=== PATIENT | female | born 1990 | race Caucasian/White ===

== ENCOUNTER → 2016-07-02 | Day surgery (SDC) | payer SELFPAY ==
[2016-07-01 13:02] VITALS: BMI 21.0
--- NOTE | 2016-07-01 18:01 | HISTORY & PHYSICAL EXAMINATION ---
DATE OF ADMISSION: 07/02/2016 REASON FOR ADMISSION: Missed . HISTORY OF PRESENT ILLNESS: The patient is a 25-year-old female, 1, para 0, approximately 8 weeks' with early failure of approximately 8 weeks. The patient is 12 weeks' 6 days by LMP and 8 weeks' by ultrasound. The patient has no significant medical history. She has not had any surgeries in the past. ALLERGIES: No known allergies. MEDICATIONS: vitamins. SOCIAL HISTORY: The patient smokes half-a-pack per day. Denies alcohol or drug use. PHYSICAL EXAMINATION: HEENT: Within normal limits. LUNGS: Clear to auscultation. COR: Regular rate and rhythm. ABDOMEN: Soft, nontender. EXTREMITIES: Within normal limits. NEUROLOGIC: Intact. ASSESSMENT: Missed , approximately 8 weeks. PLAN: D\T\E in the OR tomorrow. MTDD
[~2016-07-02] VITALS: Ht 152.4 cm; Wt 49.1 kg
[~2016-07-02] MED LIST: DEXAMETHASONE SOD INJ 4 MG/ML VIAL ONE; DiphenhydrAMINE HCL 50 MG/ML VIAL IV PRN; FENTANYL CITRATE INJ 50 MCG/1 ML 2 ML VIAL IV PRN; FENTANYL CITRATE INJ 50 MCG/1 ML 2 ML VIAL ONE; HYDROCODONE/ACETAMOPHEN 5/325MG TAB PO PRN; IBUPROFEN 600 MG TAB PO PRN; KETOROLAC TROMETHAMINE 30 MG/ML VIAL IV. PRN; KETOROLAC TROMETHAMINE 30 MG/ML VIAL ONE; LACTATED RINGER'S 1000ML 1,000 ML IV PRN; LACTATED RINGER'S 1000ML 1,000 ML IV SCH; LIDOCAINE HCL 2% 2 ML VIAL (20MG/ML) ONE; METOCLOPRAMIDE HCL INJ 5 MG/ML 2 ML VIAL IV PRN; MIDAZOLAM HCL 1 MG/ML 2ML VIAL ONE; MTR600X PO; ONDANSETRON INJ 2 MG/ML 2 ML VIAL IV PRN; ONDANSETRON INJ 2 MG/ML 2 ML VIAL ONE; OXYCODONE/ACETAMINOPHEN 5-325 TAB PO PRN; OXYTOCIN INJ 10 UNITS/ML VIAL ONE; PRENTAB26 PO; PROPOFOL IV EMULSION 10 MG/ML 20 ML VIAL IV ONE; SILVER NITRATE APPLICATORS TOP ONE; SODIUM CHLORIDE 0.9% 1000ML 1,000 ML IV SCH
[2016-07-02 06:15] VITALS: BP 114/58; PULSE 76; TEMP 36.8; O2SAT 100; Ht 152.4 cm; Wt 49.1 kg
--- NOTE | 2016-07-02 07:23 | History & Physical Bridge Note ---
H&P Re-Evaluation Bridge Note: I have examined the patient, reviewed the History & Physical and in the interval since the performance of the History & Physical I have noted the following changes of clinical significance: No changes noted
--- NOTE | 2016-07-02 08:10 | Discharge Instructions ---
Discharge Instructions Admission Reason for Admission: Missed Discharge Discharge Diagnosis / Problem: Missed Discharge Goals Goal(s): Routine recovery after surgery, Continuing TRIAGE TECHNICIAN care Activity Recommendations Activity Limitations: as noted below Lifting Limitations: no more than 10 pounds May Resume Sexual Activity: when tolerated Driving or Machine Use: resume 1 day after discharge . Current Hospital Diet Patient's current hospital diet: Discharge Diet Recommended Diet: Regular Diet Fluid Restriction: None Procedures Procedures Performed: D&E Pending Studies Studies pending at discharge: no Medical Emergencies . Who to Call and When: Medical Emergencies: If at any time you feel your situation is an emergency, please call 911 immediately. . Non-Emergent Contact Non-Emergency issues call your: Primary Care Provider . . "Provider Documentation" section prepared by Prasad Robbins. VTE Core Measure Inpt VTE Proph given/why not?: Treatment not indicated
--- NOTE | 2016-07-02 08:13 | [facility] Post Operative Brief Note ---
Immediate Operative Summary Operative Date Jul 02, 2016. Pre-Operative Diagnosis Missed Post-Operative Diagnosis same Procedure(s) Performed D&E Surgeon Itzel Supplier Development Manager Surgeon(s) none Estimated Blood Loss 100 ml. Findings products of conception Fluids (cc crystalloids) 1000 ml Specimens POC's Drains none urine out 200 ml. Anesthesia LMA Complication(s) None Disposition Recovery Room / PACU
--- NOTE | 2016-07-02 08:27 | Anesthesiology Progress Note ---
Anesthesia Post Op Note Date & Time Jul 02, 2016 at 08:26 Vital Signs Pain Intensity: 0 Vital Signs Past 12 Hours Date Time Temp Pulse Resp B/P Pulse Ox O2 Delivery O2 Flow Rate FiO2 07/02/16 08:11 36.4 80 13 102/52 100 Mask 10 07/02/16 06:15 36.8 76 18 114/58 100 Room Air Notes Mental Status: alert / awake / arousable, participated in evaluation Pt Amnestic to Procedure: Yes Nausea / Vomiting: adequately controlled Pain: adequately controlled Airway Patency, RR, SpO2: stable & adequate BP & HR: stable & adequate Hydration State: stable & adequate Anesthetic Complications: no major complications apparent
[2016-07-02 08:55] VITALS: BP 99/67; PULSE 68; TEMP 36.8; O2SAT 99
[2016-07-02 09:27] VITALS: BP 107/63; PULSE 72; TEMP 36.5; O2SAT 99
--- NOTE | 2016-07-02 09:48 | OPERATIVE REPORT ---
DATE OF OPERATION: 07/02/2016 PREOPERATIVE DIAGNOSIS: Missed . POSTOPERATIVE DIAGNOSIS: Same. PROCEDURE: D\T\E. SURGEON: Dr. Robbins. ANESTHESIA: LMA anesthesia. DIRECTOR OF VITAL STATISTICS: None. COMPLICATIONS: None. ESTIMATED BLOOD LOSS: 100 mL. URINE OUTPUT: 200 mL. TOTAL FLUIDS: 1000 mL. CLINICAL HISTORY: The patient is a 25-year-old white female para 0-0-0-0 who presents at approximately 8 weeks gestation with a missed AB diagnosed by ultrasound. The patient is approximately 12 weeks by LMP. She was identified prior to the start of the procedure and timeout was called and the patient received no antibiotics. OPERATION AND FINDINGS: SPECIFICS OF PROCEDURE: Under satisfactory LMA anesthesia, the patient was prepped and draped in usual sterile fashion. A catheter was then used to empty the bladder. Urine output 200 mL. Exam under anesthesia revealed the uterus to be anteverted. No mass noted. A weighted speculum was then placed in the posterior vault of the cervix. A single tooth tenaculum was placed on the anterior lip of the cervix. The uterus sounded to approximately 10 cm. Dilators were then used to dilate the cervix and a #8 curved curette was then introduced. Curetting and suctioning out products of conception. After this, a sharp endometrial curette was used. At the end of the procedure Pitocin was started in the IV. No active bleeding was noted. All remaining instruments were then removed. There was a small amount of bleeding from the left cervix from the tenaculum and silver nitrate stick was then used to cauterize this. EBL 100 mL. The final sponge, needle and instrument count were found to be correct. The patient was placed supine on a stretcher and taken to recovery room in stable condition. The patient's blood type was Rh positive and she did not receive RhoGAM. I attest to the content of the Intraoperative Record and any orders documented therein. Any exceptio ns are noted below.
[2016-07-02 09:58] VITALS: BP 99/68; PULSE 72; TEMP 36.6; O2SAT 99
== END | disposition home or self-care (01) ==
LOC: C.ACU 05:47
PROVIDERS: ATTEND Obstetrics & Gynecology
DX: O02.1 Missed abortion (principal); F17.210 Nicotine dependence, cigarettes, uncomplicated

== ENCOUNTER → 2018-02-04 | Outpatient (CLI) | payer OTHER ==
[~2018-02-04] MED LIST changes: -DEXAMETHASONE SOD INJ 4 MG/ML VIAL ONE; -DiphenhydrAMINE HCL 50 MG/ML VIAL IV PRN; -FENTANYL CITRATE INJ 50 MCG/1 ML 2 ML VIAL IV PRN; -FENTANYL CITRATE INJ 50 MCG/1 ML 2 ML VIAL ONE; -HYDROCODONE/ACETAMOPHEN 5/325MG TAB PO PRN; -IBUPROFEN 600 MG TAB PO PRN; -KETOROLAC TROMETHAMINE 30 MG/ML VIAL IV. PRN; -KETOROLAC TROMETHAMINE 30 MG/ML VIAL ONE; -LACTATED RINGER'S 1000ML 1,000 ML IV PRN; -LACTATED RINGER'S 1000ML 1,000 ML IV SCH; -LIDOCAINE HCL 2% 2 ML VIAL (20MG/ML) ONE; -METOCLOPRAMIDE HCL INJ 5 MG/ML 2 ML VIAL IV PRN; -MIDAZOLAM HCL 1 MG/ML 2ML VIAL ONE; -ONDANSETRON INJ 2 MG/ML 2 ML VIAL IV PRN; -ONDANSETRON INJ 2 MG/ML 2 ML VIAL ONE; -OXYCODONE/ACETAMINOPHEN 5-325 TAB PO PRN; -OXYTOCIN INJ 10 UNITS/ML VIAL ONE; -PROPOFOL IV EMULSION 10 MG/ML 20 ML VIAL IV ONE; -SILVER NITRATE APPLICATORS TOP ONE; -SODIUM CHLORIDE 0.9% 1000ML 1,000 ML IV SCH
[2018-02-04 15:45] LABS: HEMATOCRIT 33.4 % (37-47); HEMOGLOBIN 11.3 g/dL (12.0-16.0)
== END | disposition home or self-care (01) ==
LOC: C.LAB1850 13:46
PROVIDERS: ATTEND Obstetrics & Gynecology
DX: Z34.03 Encounter for supervision of normal first pregnancy, third trimester (principal)

== ENCOUNTER 2020-11-02 07:30 | Inpatient (IN) ==
--- NOTE | 2020-10-11 13:05 | Anesthesiology Consultation ---
Date of Service October 11, 2020 Assessment & Plan (1) Encounter for pre-operative examination: Chart Review Chart Review: dividend deposit entry clerk initiated Per nursing assessment October 11, 2020, patient denies any recent travel. No known reent Covid positive contacts. Pt tested Covid positive Jul 18, 2020. Had loss of taste and smell- still has not fully returned. Pt is scheduled for preop Covid testing prior to procedure= will await results. History Surgery Operation Date: 11/02/20 07:30 Proposed Procedures p Section in LD - Jazmyn Acosta MD Height/Weight Height: 5 ft Weight: 58.513 kg Allergies Allergy/AdvReac Type Severity Reaction Status Date / Time No Known Allergies Allergy Verified 10/11/20 11:57 Medications Home Medications Medication Instructions Recorded Confirmed Last Taken prenat.vits,romelia,xau-ylhm-pizhr 1 tab PO QAM 03/28/20 10/11/20 Unknown Past Medical History Medical History (Updated 10/11/20 @ 13:40 by Apoorva Mejia PA-C) History of COVID-19 07/18/2020 (per OB note) Urgent Care [place]; loss of taste/smell, denies additional symptoms; still without taste/smell Tobacco abuse Past Family History Family History Grandmother Cancer Grandmother (Maternal) Diabetes Hypertension Other No family history of adverse response to anesthesia Past Surgical History Surgical History H/O dilation and curettage [facility] H/O oral surgery History of History of wisdom tooth extraction Social History Smoking Status: Current every day smoker tobacco type: cigarettes Smoking cigarettes per day: > 1 ppd x 13 years Do You Dip or Chew Tobacco: No Hx Alcohol Use: No Hx Substance Use: No substance use type: does not use
[~2020-11-02 07:30] MED LIST changes: +LACTATED RINGER'S 1,000 ML IV SCH; -MTR600X PO; -PRENTAB26 PO; +ceFAZolin 2000MG 2,000 MG/15 ML SYR IV SCH
[2020-11-02] MEDS ORDERED: LACTATED RINGER'S 1,000 ML IV SCH (08:45)
[2020-11-02 08:57] LABS: Basophils # (auto) 0.02 K/uL (0-0.2); Basophils % (auto) 0.2 %; Eosinophils # (auto) 0.46 K/uL (0-0.5); Eosinophils % (auto) 4.5 %; Hematocrit (blood only) 35.8 % (37-47); Hemoglobin 12.3 g/dL (12.0-16.0); Immature Granulocytes # (auto) 0.03 K/uL (0.00-0.02); Immature Granulocytes % (auto) 0.3 %; Lymphocytes # (auto) 2.92 K/uL (1.2-3.4); Lymphocytes % (auto) 28.9 %; Mean Corpuscular Hemoglobin 31.1 pg (25-34); Mean Corpuscular Hgb Conc 34.4 g/dL (32-36); Mean Corpuscular Volume 90.6 fL (80-100); Mean Platelet Volume 10.8 fL (7.4-10.4); Monocytes # (auto) 0.98 K/uL (0.11-0.59); Monocytes % (auto) 9.7 %; Neutrophils % (auto) 56.4 %; Platelet Count 213 K/uL (130-400); RDW Coefficient of Variation 12.6 % (11.5-14.5); RDW Standard Deviation 42.2 fL (36.4-46.3); Red Blood Count 3.95 M/uL (4.2-5.4); White Blood Count 10.11 K/uL (4.8-10.8)
--- NOTE | 2020-11-02 08:58 | History & Physical Bridge Note ---
Date of Service November 02, 2020 History & Physical Bridge Note I have examined the patient, reviewed the History & Physical and in the interval since the performance of the History & Physical I have noted the following changes of clinical significance: no changes noted
[2020-11-02] MEDS ORDERED: NALOXONE HCL 0.4 MG/1 ML VIAL/CARP IV PRN (09:13)
[2020-11-02] MEDS ORDERED: NALOXONE HCL 1 MG in SODIUM CHLORIDE 0.9% 1000ML 1,000 ML IV PRN (09:13)
[2020-11-02] MEDS ORDERED: NALOXONE HCL 0.08 MG in SYRINGE 1.8 ML IV PRN (09:13)
[2020-11-02] MEDS ORDERED: diphenhydrAMINE 50 MG/ML VIAL IV PRN (09:13)
[2020-11-02] MEDS ORDERED: MoRPHine SULFATE 2 MG/ML CARP IV PRN (09:13)
[2020-11-02] MEDS ORDERED: LACTATED RINGER'S 500 ML IV PRN (09:13)
[2020-11-02] MEDS ORDERED: HYDROmorphone INJ 0.5 MG/0.5 ML SYR IV PRN (09:13)
[2020-11-02] MEDS ORDERED: ONDANSETRON INJ 2 MG/ML 2 ML VIAL IV PRN (09:13)
[2020-11-02] MEDS ORDERED: MoRPHine SULFATE PF 1 MG/ML 10 ML AMP/VIAL INT SPINAL ONE (09:13)
[2020-11-02] MEDS ORDERED: ePHEDrine sulfate 50 MG/ML AMP IV PRN (09:13)
[2020-11-02] MEDS ORDERED: MEPERIDINE HCL 25 MG/ML CARP/VIAL IV PRN (09:13)
[2020-11-02] MEDS ORDERED: NO NARCOTICS OR SEDATIVES SCH (09:15)
[2020-11-02] MEDS ORDERED: SODIUM CHLORIDE 0.9% 1000ML 1,000 ML IV SCH (09:15)
[2020-11-02] MEDS ORDERED: MoRPHine SULFATE PF 1 MG/ML 10 ML AMP/VIAL ONE (10:03)
[2020-11-02] MEDS ORDERED: fentaNYL citrate 100 MCG/2 ML VIAL ONE (10:03)
[2020-11-02] MEDS ORDERED: PHENYLEPHRINE 100MCG/ML 5ML SYR ONE (10:23)
[2020-11-02] MEDS ORDERED: OXYTOCIN 10 UNITS/ML VIAL ONE (10:23)
--- NOTE | 2020-11-02 10:52 | Operative Report ---
[facility] Post Operative Report Pre & Post Diagnosis Prior section, desires repeat. SIUP @ term. I identified the patient and participated in the time-out.: Yes Procedure Repeat low transverse section Surgeon Jazmyn Acosta MD Director Of Tax Services Letitia MEJIA Estimated Blood Loss 500 Findings Consistent with Post-Op Diagnosis Specimens Placenta, cord blood Anesthesia Type Spinal Complications none Disposition Accompanied Patient To Recovery: Yes Disposition: L&D Description of Procedure The patient was brought to the operating room and placed on the table in the supine position with a leftward tilt, then prepped and draped in standard sterile fashion. A hard time out was taken prior to proceeding. A pfannensteil incision was created sharply and carried down to the fascia using bovie electrocautery. The fascia was nicked and then extended using stewart scissors. The edges of the fascia were grasped with Darion clamps and elevated, then sharply and bluntly dissected off the underlying rectus. The midline of the rectus was identified and bluntly . The peritoneum was bluntly en tered, and this entry was extended using pressure from the surgeon's hands. The bladder retractor was placed and the lower uterine segment was examined and found to be well developed. A bladder flap was created and the retractor was replaced behind this flap to protect the bladder. A transverse lower uterine incision was then created, with final entry to the uterine cavity made in a blunt manner with the surgeon's finger. Clear amniotic fluid was encountered. The head was elevated to the incision and delivered using mild fundal pressure. The cord was doubly clamped and cut, then the vigorous was taken to the warmer for entry manager care. The placenta was manually extracted, then the uterus was gently exteriorized from the maternal abdomen. The cavity was cleared of clot and debris using a dry lap sponge. The angles of the incision were identified with allis clamps, and the hysterotomy was then repaired in running locked fashion using 0-vicryl suture, followed by a second imbricating layer. The tubes and ovaries were examined and found to be normal bilaterally. The posterior gutter was irrigated and cleared of clot and debris. The uterus was then gently re-internalized to the abdomen. Lateral gutters were cleared of clot and debris using a damp lap sponge, and a final exam of the hysterotomy revealed good hemostasis. The rectus muscles were allowed to reapproximate naturally. The angle of the fascia was grasped with a Darion clamp and the fascia was then repaired in running non-locked fashion with 1- vicryl suture. At the completion of repair, the fascia was examined and found to be free of any defect. The skin was then closed using 4-0 monocryl in a running subcuticular fashion and a dermabond dressing was applied. The bledsoe was noted to be draining clear yellow urine as the patient was transferred back to her recovery room. I attest to the content of the Intraoperative Record and any orders documented therein. Any exceptions are noted below.
[2020-11-02] MEDS ORDERED: SENNA 8.6 MG TAB PO PRN (13:53)
[2020-11-02] MEDS ORDERED: SUPERCREAM 0.870% 15 GM JAR EXT PRN (13:53)
[2020-11-02] MEDS ORDERED: BENZOCAINE 20% AER SPR 82.5 GM CAN EXT PRN (13:53)
[2020-11-02] MEDS ORDERED: HYDROCORTISONE ACETATE 25 MG SUPP PR PRN (13:53)
[2020-11-02] MEDS ORDERED: MAGNESIUM HYDROXIDE SUSP 30 ML UDC PO PRN (13:53)
[2020-11-02] MEDS ORDERED: DIPHTHERIA/TETANUS/PERTUSSIS 0.5 ML SYR/VIAL IM ONE (13:53)
[2020-11-02] MEDS: OXYTOCIN 30 UNITS in LACTATED RINGER'S 1,000 ML IV SCH ×2 (14:36→21:59)
[2020-11-02] MEDS: KETOROLAC 30 MG/ML VIAL IV PRN ×2 (14:53→21:13)
[2020-11-02] MEDS: NICOTINE 21 MG/24 HR TDSY TD SCH (17:17)
[2020-11-02] MEDS: SIMETHICONE 80 MG CHEW PO SCH ×2 (17:38→21:02)
--- NOTE | 2020-11-02 19:58 | Anesthesiology Progress Note ---
Date of Service November 02, 2020 Anesthesia Post Procedure Vital Signs Vital Signs: Temp Pulse Pulse Resp BP BP Pulse Ox 11/02/20 18:30 18 97 11/02/20 17:30 18 99 11/02/20 16:30 18 99 11/02/20 15:30 18 100 11/02/20 14:30 36.4 C L 63 18 112/77 100 11/02/20 14:23 57 L 106/64 100 11/02/20 14:18 58 L 100 11/02/20 14:13 58 L 104/70 100 11/02/20 14:08 59 L 100 11/02/20 14:03 64 106/69 100 11/02/20 13:58 52 L 100 11/02/20 13:53 53 L 52 L 16 106/74 106/74 100 11/02/20 13:48 71 100 11/02/20 13:43 66 103/68 100 11/02/20 13:38 55 L 100 11/02/20 13:33 54 L 104/69 100 11/02/20 13:28 52 L 100 11/02/20 13:23 63 106/61 100 11/02/20 13:18 53 L 98 11/02/20 13:13 67 110/59 L 100 11/02/20 13:08 89 99 11/02/20 13:03 66 101/59 L 97 11/02/20 12:58 61 98 11/02/20 12:53 36.4 C L 61 48 L 16 99/60 L 99/60 L 98 11/02/20 12:48 61 97 11/02/20 12:43 48 L 99/56 L 97 11/02/20 12:38 59 L 97 11/02/20 12:33 64 104/57 L 97 11/02/20 12:28 57 L 98 11/02/20 12:23 36.4 C L 61 59 L 16 97/56 L 97/56 L 98 11/02/20 12:18 47 L 97 11/02/20 12:13 60 99/60 L 97 11/02/20 12:08 57 L 97 11/02/20 12:03 62 100/57 L 97 11/02/20 11:58 57 L 98 11/02/20 11:53 66 60 20 102/55 L 102/55 L 98 11/02/20 11:48 70 98 11/02/20 11:43 66 68 20 104/62 104/62 97 11/02/20 11:38 72 97 11/02/20 11:33 72 75 16 108/63 108/63 97 11/02/20 11:28 77 98 11/02/20 11:23 72 68 20 103/54 L 103/54 L 96 11/02/20 11:18 73 98 11/02/20 11:14 77 77 20 103/64 103/64 98 11/02/20 11:13 86 96 11/02/20 11:08 79 90 11/02/20 11:07 81 94 11/02/20 11:03 77 86 20 94/56 L 94/56 L 97 11/02/20 11:00 85 94 11/02/20 10:58 97 H 98 11/02/20 10:53 85 96 11/02/20 10:52 36.4 C L 88 88 20 95/53 L 95/53 L 96 11/02/20 09:37 36.6 C 20 11/02/20 09:30 72 141/75 H 11/02/20 09:00 36.9 C 74 20 117/72 Pain Intensity Abdomen: Pain Intensity: 2 Transfer of Care Handoff Completed per policy Notes Mental Status: alert / awake / arousable Nausea / Vomiting: adequately controlled Pain: adequately controlled Airway Patency, RR, SpO2: stable & adequate BP & HR: stable & adequate Hydration State: stable & adequate Neuraxial Anesthesia: was administered and sensory block is resolving Anesthetic Complications: no major complications apparent and Pt Satisfied with anesthetic care
[2020-11-02] MEDS: DOCUSATE SODIUM 100 MG CAP PO SCH (21:02)
[2020-11-03] MEDS: KETOROLAC 30 MG/ML VIAL IV PRN (04:49)
--- NOTE | 2020-11-03 05:23 | Obstetrical Progress Note ---
Date of Service <Freddy Barrera MD - Last Filed: 11/03/20 06:39> November 03, 2020 Assessment & Plan <Freddy Barrera MD - Last Filed: 11/03/20 06:39> (1) state: 30 y/o 39w3d s/p rLTCS on 11/01/20, POD1. O pos. RI. GBS pos. No complications during c/s. - continue routine care - cbc reviewed, appropriate - ambulate, advance diet, remove bledsoe, pain control Subjective <Freddy Barrera MD - Last Filed: 11/03/20 06:39> Ambulation: limited ambulation Voiding: bledsoe catheter in place Passing Gas:: Yes Diet Tolerance:: regular diet Lochia:: Small Feeding Type:: breast feeding Current Pain Level(1-10): 0 Patient is doing well. Pain is minimal. No complaints. Review of Systems Denies fever, chills, sweats Denies shortness of breath, chest pain, palpitations. Denies breast pain. Denies dysuria. Denies headache or changes in vision. Denies nausea/vomiting. Denies weakness. hand tingling bilat Denies calf pain. Denies mood complaints. Physical Exam <Freddy Barrera MD - Last Filed: 11/03/20 06:39> General: Alert, oriented. No acute distress. Cardiac: Regular rate and rhythm, no murmurs/rubs/gallops. Respiratory: End inspiratory wheeze at left lung field, otherwise clear. No respiratory distress. Abdomen: , soft. LTCS incision clean, dry, intact, nonerythematous. Uterus: Uterine fundus firm, palpable 1cm below umbilicus. Lower Extremities: No lower extremity edema or swelling. No deep calf pain. Rahel's negative bilaterally. Results & Data ([facility]) <Freddy Barrera MD - Last Filed: 11/03/20 06:39> Vital Signs (Past 12 Hours) Vital Signs Temp Pulse Resp BP BP Pulse Ox 11/03/20 04:40 16 99 11/03/20 04:08 36.8 C 77 16 125/85 99 11/03/20 03:22 16 98 11/03/20 01:47 17 96 11/02/20 23:50 16 96 11/02/20 23:43 37 C 67 18 110/74 97 11/02/20 22:00 16 97 11/02/20 21:00 16 99 11/02/20 20:55 36.8 C 78 16 119/76 99 11/02/20 20:00 16 98 11/02/20 19:00 16 98 11/02/20 18:30 18 97 11/02/20 17:30 18 99 Medications Administered <Jazmyn Acosta MD - Last Filed: 11/03/20 07:45> Co-Signing Physician Notes Resident Physician Supervision Note: I interviewed and examined the patient. Discussed with Dr. Barrera and agree with findings and plan as documented in the note. Any exceptions or clarifications are listed here: [ ] Documented By: Jazmyn Acosta MD, FACOG
[2020-11-03 06:33] LABS: Hematocrit (blood only) 32.1 % (37-47); Hemoglobin 10.9 g/dL (12.0-16.0); Mean Corpuscular Hemoglobin 31.7 pg (25-34); Mean Corpuscular Volume 93.3 fL (80-100); Mean Platelet Volume 10.9 fL (7.4-10.4); Platelet Count 179 K/uL (130-400); RDW Coefficient of Variation 12.7 % (11.5-14.5); RDW Standard Deviation 42.8 fL (36.4-46.3); Red Blood Count 3.44 M/uL (4.2-5.4)
[2020-11-03 07:04] LABS: Basophils # (auto) 0.03 K/uL (0-0.2); Basophils % (auto) 0.3 %; Eosinophils # (auto) 0.31 K/uL (0-0.5); Eosinophils % (auto) 2.8 %; Immature Granulocytes # (auto) 0.01 K/uL (0.00-0.02); Immature Granulocytes % (auto) 0.1 %; Lymphocytes # (auto) 2.63 K/uL (1.2-3.4); Lymphocytes % (auto) 24.1 %; Monocytes # (auto) 1.04 K/uL (0.11-0.59); Monocytes % (auto) 9.5 %; Neutrophils # (auto) 6.88 K/uL (1.4-6.5); Neutrophils % (auto) 63.2 %
[2020-11-03] MEDS: SIMETHICONE 80 MG CHEW PO SCH ×5 (09:10→21:07)
[2020-11-03] MEDS: FERROUS SULFATE 325 MG TAB PO SCH (09:11)
[2020-11-03] MEDS: DOCUSATE SODIUM 100 MG CAP PO SCH ×2 (09:11→21:07)
[2020-11-03] MEDS: PRENATAL VITAMIN 1 TAB PO SCH (09:11)
[2020-11-03] MEDS ORDERED: PROMETHAZINE HCL 25 MG in SODIUM CHLORIDE 0.9% 50 ML IV PRN (09:14)
[2020-11-03] MEDS ORDERED: MEPERIDINE HCL 50 MG/ML CARP IV PRN (09:14)
[2020-11-03] MEDS ORDERED: KETOROLAC 30 MG/ML VIAL IV PRN (09:14)
[2020-11-03] MEDS ORDERED: diphenhydrAMINE Capsule 25 MG CAP PO PRN (09:14)
[2020-11-03] MEDS ORDERED: DC INTRASPINAL MORPHINE ONE (09:14)
[2020-11-03] MEDS ORDERED: ONDANSETRON INJ 2 MG/ML 2 ML VIAL IV PRN (09:14)
[2020-11-03] MEDS ORDERED: diphenhydrAMINE 50 MG/ML VIAL IV PRN (09:14)
[2020-11-03] MEDS: NICOTINE 21 MG/24 HR TDSY TD SCH (09:15)
[2020-11-03] MEDS: oxyCODONE/ACETAMINOPHEN 5mg/325mg TAB PO PRN ×3 (09:17→22:00)
[2020-11-03] MEDS: IBUPROFEN 600 MG TAB PO PRN ×3 (09:17→22:00)
--- NOTE | 2020-11-03 09:33 | Anesthesiology Progress Note ---
Date of Service November 03, 2020 Anesthesia Post Procedure Vital Signs Vital Signs: Temp Pulse Pulse Resp BP BP Pulse Ox 11/03/20 15:29 37.1 C 67 18 101/65 96 11/03/20 11:50 36.4 C L 74 20 114/73 11/03/20 08:00 20 98 11/03/20 07:45 37 C 66 16 103/67 99 11/03/20 07:00 16 99 11/03/20 06:00 16 97 11/03/20 04:40 16 99 11/03/20 04:08 36.8 C 77 16 125/85 99 11/03/20 03:22 16 98 11/03/20 01:47 17 96 11/02/20 23:50 16 96 11/02/20 23:43 37 C 67 18 110/74 97 11/02/20 22:00 16 97 11/02/20 21:00 16 99 11/02/20 20:55 36.8 C 78 16 119/76 99 11/02/20 20:00 16 98 11/02/20 19:00 16 98 11/02/20 18:30 18 97 Pain Intensity Abdomen: Pain Intensity: 2 Transfer of Care Handoff Completed per policy Notes Mental Status: alert / awake / arousable and participated in evaluation Nausea / Vomiting: adequately controlled Pain: adequately controlled Airway Patency, RR, SpO2: stable & adequate BP & HR: stable & adequate Hydration State: stable & adequate Neuraxial Anesthesia: sensory block resolved Anesthetic Complications: no major complications apparent and Pt Satisfied with anesthetic care
[2020-11-03] MEDS: LACTATED RINGER'S 1,000 ML IV SCH ×2 (17:05→17:06)
[2020-11-04] MEDS: oxyCODONE/ACETAMINOPHEN 5mg/325mg TAB PO PRN (04:12)
[2020-11-04] MEDS: IBUPROFEN 600 MG TAB PO PRN (04:13)
[2020-11-04 06:38] LABS: Hematocrit (blood only) 32.3 % (37-47)
[2020-11-04] MEDS: DOCUSATE SODIUM 100 MG CAP PO SCH (08:24)
[2020-11-04] MEDS: FERROUS SULFATE 325 MG TAB PO SCH (08:24)
[2020-11-04] MEDS: SIMETHICONE 80 MG CHEW PO SCH (08:24)
[2020-11-04] MEDS: PRENATAL VITAMIN 1 TAB PO SCH (08:24)
--- NOTE | 2020-11-04 09:11 | Obstetrical Progress Note ---
Date of Service November 04, 2020 Assessment & Plan (1) state: 30yo s/p day 2 . Doing well - Stable for discharge Subjective Ambulation: ambulating normally Voiding: no voiding problems Passing Gas:: Yes Diet Tolerance:: regular diet Lochia:: Moderate Physical Exam Constitutional WD/WN, vitals as above Respiratory normal respiratory effort; no respiratory distress and no labored breathing Gastrointestinal (Abdomen) Inspection/Auscultation: abdomen normal to inspection; abdomen not distended Percussion/Palpation: abdomen soft; abdomen nontender, no guarding and abdomen not rigid Incision clean dry and intact Genitourinary OB Exam Abdomen: + fundal height Fundus: + firm and + relation to umbilicus (Below); not tender and not boggy Results & Data ([facility]) Vital Signs (Past 12 Hours) Vital Signs Temp Pulse Resp BP Pulse Ox 11/04/20 07:20 36.7 C 67 18 109/71 97 11/03/20 23:05 36.8 C 64 18 119/74
--- NOTE | 2020-11-05 10:37 | Discharge Summary ---
Date of Service November 05, 2020 Discharge Data Consultations 11/02/20 08:38 Consult Anesthesiology Stat Procedures Performed Operation Date: 11/02/20 08:50 Actual Procedures p Section in LD with the of a live female child at 1024; in Main OR 3 - Jazmyn Acosta MD Hospital Course (1) state: 30yo s/p day 2 . Doing well - Stable for discharge Patient underwent uncomplicated repeat section and was discharged on POD#2 as per above, with plan for typical 6 week follow up and with prn pain medication. Coding Level of Care Code None Diagnoses state Z39.2
== END 2020-11-04 11:35 | disposition home or self-care (01) | DRG 788 ==
LOC: EDSTATUS 07:30 → 4S1 08:34 → 4S2 15:26

== ENCOUNTER 2025-02-19 23:57 | Inpatient (IN) ==
--- NOTE | 2025-02-20 00:39 | History & Physical Report ---
Date of Service February 20, 2025 Assessment & Plan (1) SROM (spontaneous rupture of membranes): (2) Previous delivery affecting : Plan 34 yo at 39 wga presents w/ srom, planned repeat CS VSS Fetus cat 1 CS - Discussed indications, risks, benefits, alternatives with risks including infection, bleeding, injury to adjacent structures (bowel, bladder, ureters, blood vessels, nerves, baby), possible need for blood transfusion and/or life saving hysterectomy, VTE. Desires permanent sterilization, reviewed risk of regret. Consent reviewed in detail w/ pt and signed after all questions answered to her satisfaction. Plan for ancef and azithro Admission and Anticipated Discharge Date Admission Date: February 20, 2025 History of Present Illness Chief Complaint: ROM Primary Care Provider: Michael Benitez, 34 yo at 39 wga presents with SROM. +FM; denies ctx, VB PNI: CSx2, desires repeat w/ tubal Past ground hand hx: Past Pregnancies Del. Date GA wks Lbr Lgth wt Sex Type del Anes Place Del Prov ? Comment Unknown 8 Aborted-Spontaneous 201504/23/18 39 6lb 11oz M Epidural [facility] Dr. Acosta No failure to progress 11/02/20 39 6lbs F Spi nal [facility] Dr. Acosta No denies hx stis denies hx abnl pap Allergies Allergy/AdvReac Type Severity Reaction Status Date / Time No Known Allergies Allergy Verified 02/20/25 00:22 Home Medications Medication Instructions Recorded Confirmed Type [id number] 1 tab PO DAILY 07/28/24 02/20/25 History [ Plus] acetaminophen 325 mg tablet 325 mg PO QID PRN Pain 02/14/25 02/15/25 History Patient History Medical History (Updated 02/20/25 @ 00:38 by Jessica Nix MD) MDD (major depressive disorder), recurrent episode hx Anxiety no meds Tobacco abuse History of COVID-19 07/18/2020 (per OB note) Urgent Care [place]; loss of taste/smell, denies additional symptoms; still without taste/smell Surgical History History of wisdom tooth extraction History of x2 H/O oral surgery H/O dilation and curettage SAB Family History Grandmother Cancer Grandmother (Maternal) Diabetes Hypertension Other No family history of adverse response to anesthesia Denies family history of Ovarian cancer Myocardial infarction Breast cancer Lung cancer Colorectal cancer Stroke Social History Smoking Status: Current every day smoker Tobacco Type: Cigarettes Cigarettes Per Day: 10 per day -advsed; Second Hand Exposure: Yes (hx); Do You Dip or Chew Tobacco: No; Hx Alcohol Use: No Hx Substance Use: No Preferred Language: Nigerien Communication Ability: Effective Visual Impairment: Limited Hearing Ability: Normal Automation And Control Engineer Required: No Beliefs That Will Affect Care: None marital status: Single marital status details: Segundo (32) [phone] Current Living Situation: Family and Significant Other current occupational status: employed 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 [employer] How many Children do You have: 2 Feels Safe at Home: Yes Childhood Exposure to Second-Hand Smoke: Yes Diet: regular caffeine: Yes Dental Care, Regularly: No Physical Activity Frequency: 3-4 Times per Week Seatbelt Use: always Sunscreen Use: No Assistive Devices: Contacts and Glasses Physical Exam Genitourinary: OB Exam Monitor Tracing: + external FHT monitor used, + external uterine monitor used (q9) and + category I (130/mod/+accel/-decel) grossly ruptured Results & Data Vital Signs (Past 12 Hours) Vital Signs Pulse BP 02/20/25 00:15 86 126/75 Laboratory Results OB Labs: Blood Type O Positive 08/01/24 Antibody Screen NEGATIVE 08/01/24 Hgb 11.8 g/dl (12.0-16.0) L 12/07/24 Hct 34.7 % (37.0-47.0) L 12/07/24 MCV 92.2 fL (80.0-100.0) 08/01/24 Plt Count 264 K/uL (130-400) 08/01/24 Rubella IgG Antibody Non Immune (Immune) L 08/01/24 RPR Nonreactive (Nonreactive) 04/02/20 Treponema pallidum Ab Negative (Negative) 12/07/24 Hep Bs Antigen Negative (Negative) 08/01/24 Hepatitis C Antibody Negative (Negative) 08/01/24 HIV 1&2 Ab/P24 Ag 4thGn Negative (Negative) 08/01/24 Glucose 1 Hr 50 gm 137 mg/dl (70-130) H 12/07/24 Maternal Serum AFP 57.3 ng/mL 09/14/24 OB Optional Labs: Chlamydia trachomatis RNA Not Detected (NotDetected) 08/01/24 Neisseria gonorrhoeae RNA Not Detected (NotDetected) 08/01/24 Thyroid Stimulating Hormone (TSH) 1.277 uIu/ml (0.300-4.500) 06/30/24 Alpha Fetoprotein Triple Screen SEE NOTE 09/14/24 Alpha Fetoprotein 69.3 NG/ML 11/13/17 Labs Reviewed: CF/SMA negative (09/18/17) QS neg akh gbs pos akh 2 hr gtt x 2 nl akh Diagnostic Findings ant plac Coding Level of Care Code None Diagnoses SROM (spontaneous rupture of membranes) Previous delivery affecting O34.219
[2025-02-20] MEDS: LACTATED RINGER'S 1,000 ML IV SCH ×2 (00:48→01:46)
[2025-02-20] MEDS: ACETAMINOPHEN 500 MG TAB PO SCH (00:53)
[2025-02-20 00:59] LABS: Hematocrit (blood only) 35.9 % (37.0-47.0); Hemoglobin 12.7 g/dl (12.0-16.0); Mean Corpuscular Hemoglobin 32.2 pg (25.0-34.0); Mean Corpuscular Volume 91.1 fL (80.0-100.0); Platelet Count 183 K/uL (130-400); RDW Standard Deviation 40.6 fL (36.4-46.3); Red Blood Count 3.94 M/uL (4.20-5.40); White Blood Count 15.40 K/ul (4.8-10.8)
[2025-02-20] MEDS: CITRIC ACID/SODIUM CITRATE 15 ML UDC PO SCH (01:44)
[2025-02-20] MEDS: AZITHROMYCIN 500 MG/255 ML BAG IV SCH (02:19)
--- NOTE | 2025-02-20 03:49 | Operative Report ---
Post Operative Report Pre & Post Diagnosis Operation Date: 02/20/25 01:00 Intrauterine at 39 weeks, SROM, CSx2, desires sterilization I identified the patient and participated in the time-out.: Yes Procedure Operation Date: 02/20/25 01:00 Repeat Low Transverse Section with Bilateral Salpingectomy Surgeon Jessica Nix MD Bank President ALEJANDRA Saunders Quantitative Blood Loss (QBL) 122 Findings Consistent with Post-Op Diagnosis Viable female with APGARs 8 and 9. Normal appearing uterus and bilateral ovaries. Left fallopian tube wnl, right fallopian tube slightly scarred and smaller comparatively Fluids UOP 200cc clear urine by bledsoe catheter Specimens Placenta, cord blood, right and left fallopian tubes Anesthesia Type Spinal Complications none Disposition Accompanied Patient To Recovery: Yes Disposition: L&D Indications 34 yo at 39 wga presented with SROM with plan to undergo repeat CS and tubal ligation Description of Procedure The patient was taken to the operating room after consents were ensured. The patient was properly identified. Spinal anesthesia was obtained without difficulty. The patient was placed in a dorsal supine position with left lateral tilt, then prepped and draped in normal sterile fashion. Surgical time out was performed. Antibiotics were given for prophylaxis. Anesthesia was tested to ensure adequate surgical levels. Pfannenstiel skin incision was performed and carried down to the underlying fascia with a knife. The fascia was then nicked in the midline and extended laterally with pickups and Gonzalez scissors. Superior portion of the fascia was grasped with Kochers x2 and elevated off the underlying rectus muscles using blunt dissection. Inferior portion of the fascia was then grasped with Darion clamps x2 and also elevated off the underlying muscles with blunt dissection. Midline was identified. The peritoneum was then entered and extended to provide adequate room for delivery of baby. A hand was inserted into the abdomen, uterus was noted to be clear of adhesions. Bladder blade was inserted, bladder flap was created in the usual fashion. A low transverse uterine incision was made in the uterus and extended bluntly in a superior to inferior fashion. Amniotomy was made with clear fluid at the time of rupture. head was grasped and elevate d through the hysterotomy in an atraumatic fashion. The baby delivered in HUSSEIN position, no nuchal cord. Remainder of the body delivered without incident. Nose and mouth were bulb suctioned on the surgical field. The cord was double clamped and cut, baby was handed off to awaiting pediatrics staff. Cord segment and blood were obtained. Placenta was then expressed from the uterus. The uterus was exteriorized. Several passes were made inside the uterus to remove the remaining membranes. Attention was then turned to the hysterotomy, which was then closed with a running locked suture of 0 Vicryl on a CTX needle. An imbricating layer was then performed using 0-Monocryl. There was noted to be good hemostasis. Attention was turned to sterilization portion of the procedure. Right fallopian tube was grasped in the avascular mesosalpinx with fred and followed out to the fimbriated end. Ligasure was used to excise the fallopian tube in its entirety and handed off for pathology. Tubal site was excellently hemostatic. The same procedure was performed on the contralateral side, there was excellent hemostasis. The posterior cul-de-sac was then inspected and cleaned of clot and debris. The hysterotomy was again inspected and noted to be hemostatic. The uterus was returned to the abdomen. The right and left pericolic gutters were cleaned of all clot and debris. The hysterotomy was again noted to be hemostatic. Tubal sites were hemostatic. Space of Retzius was noted to be hemostatic. The fascia was then closed with a running suture of 0 Vicryl on a CT1 needle. Subcutaneous tissue was copiously irrigated and noted to be hemostatic. Subcutaneous tissue was re-approximated using 2-0 plain gut. The skin was then closed with a running suture of 3-0 Monocryl in a subcuticular fa shion. At termination of the procedure, fundal pressure was applied and a moderate amount of lochia was expressed. Pressure dressing was applied to the patient. She tolerated the procedure well. All sponge, needle, instrument counts were correct x 2. I attest to the content of the Intraoperative Record and any orders documented therein. Any exceptions are noted below. OB Procedure Charges [id number] Add on Tubal for C/S
[2025-02-20] MEDS ORDERED: HYDROmorphone INJ 1 MG/ML SYRINGE IV PRN (03:53)
[2025-02-20] MEDS ORDERED: PROMETHAZINE HCL 6.25 MG in SODIUM CHLORIDE 0.9% 50 ML IV PRN (03:53)
[2025-02-20] MEDS ORDERED: ATROPINE SULFATE 0.1 MG/ML 10ML SYR IV PRN (03:53)
[2025-02-20] MEDS ORDERED: ONDANSETRON INJ 2 MG/ML 2 ML VIAL IV PRN ×2 (03:53→03:54)
--- NOTE | 2025-02-20 03:53 | Anesthesiology Progress Note ---
Date of Service February 20, 2025 Anesthesia Post Procedure Vital Signs Vital Signs: Temp Pulse Resp BP Pulse Ox 02/20/25 03:50 98 02/20/25 03:50 80 02/20/25 03:46 93 02/20/25 03:46 79 02/20/25 03:45 100 02/20/25 03:45 78 02/20/25 03:41 77 02/20/25 03:41 108/57 L 02/20/25 03:40 99 02/20/25 03:40 78 02/20/25 00:24 98.4 F 86 18 126/75 02/20/25 00:15 98.4 F 86 18 126/75 Transfer of Care Handoff Completed per policy Notes Mental Status: alert / awake / arousable and participated in evaluation Patient Amnestic to Procedure: No Nausea / Vomiting: adequately controlled Pain: adequately controlled Airway Patency, RR, SpO2: stable & adequate BP & HR: stable & adequate Hydration State: stable & adequate Neuraxial Anesthesia: was administered and sensory block is resolving Anesthetic Complications: no major complications apparent and Pt Satisfied with anesthetic care
[2025-02-20] MEDS ORDERED: LACTATED RINGER'S 1,000 ML IV SCH (03:54)
[2025-02-20] MEDS ORDERED: BENZOCAINE 20% SPRY 85 APPLN/85 GM CAN EXT PRN (03:54)
[2025-02-20] MEDS ORDERED: HYDROCORTISONE ACETATE 25 MG SUPP PR PRN (03:54)
[2025-02-20] MEDS ORDERED: diphenhydrAMINE Capsule 25 MG CAP PO PRN (03:54)
[2025-02-20] MEDS ORDERED: diphenhydrAMINE 50 MG/ML VIAL IV PRN (03:54)
[2025-02-20] MEDS ORDERED: MAGNESIUM HYDROXIDE SUSP 30 ML UDC PO PRN (03:54)
[2025-02-20] MEDS ORDERED: CALCIUM CARBONATE 500 MG CHEWABLE TAB PO PRN (03:54)
[2025-02-20] MEDS ORDERED: PROMETHAZINE 12.5 MG/50.5 ML BAG IV PRN (03:54)
[2025-02-20] MEDS ORDERED: HYDROmorphone INJ 0.5 MG/0.5 ML SYR IV PRN (03:54)
[2025-02-20] MEDS ORDERED: SENNA 8.6 MG TAB PO PRN (03:54)
[2025-02-20] MEDS ORDERED: MEASLES, MUMPS & RUBELLA VIRUS VACCINE (MMR) 0.5ML VIAL SQ ONE (03:54)
[2025-02-20] MEDS: KETOROLAC 30 MG/ML VIAL IV SCH (04:07)
[2025-02-20] MEDS: DIPHTHER/TETAN/PERTUS Vaccine (Tdap, Adol/Adult) 0.5mL IM ONE (04:25)
[2025-02-20] MEDS: FERROUS SULFATE 325 MG TAB PO SCH (09:03)
[2025-02-20] MEDS: DOCUSATE SODIUM 100 MG CAP PO SCH (09:03)
[2025-02-20] MEDS: SIMETHICONE 80 MG CHEW PO SCH (09:03)
[2025-02-20] MEDS: PRENATAL VITAMIN 1 TAB PO SCH (09:03)
[2025-02-20] MEDS: ACETAMINOPHEN 325 MG TAB PO SCH (09:04)
[2025-02-20] MEDS: OXYTOCIN 20 UNITS/LR 1,002 ML IV SCH (10:43)
[2025-02-20] MEDS: OPTIRAY 320 125ml IV ONE (21:14)
--- NOTE | 2025-02-20 21:41 | CT Scan Report ---
Exam(s): CTA CHEST IV Amt: 118 cc opti 320 EXAM: CT Angiography Chest With Intravenous Contrast CLINICAL HISTORY: Reason for exam: PE. TECHNIQUE: Axial computed tomographic angiography images of the chest with intravenous contrast. CTDI is 11 mGy and DLP is 383 mGy-cm. Automated exposure control was utilized for the study. A dose lowering technique was utilized adhering to the principles of ALARA. MIP reconstructed images were created and reviewed. COMPARISON: No relevant prior studies available. FINDINGS: Pulmonary arteries: No pulmonary embolism. Aorta: No acute findings. Normal caliber. No dissection. Lungs: Left lower lobe mucus plugging and consolidation. Small amount of groundglass in the right upper lobe. Pleural space: No pleural effusion. No pneumothorax. Heart: Unremarkable. Bones/joints: No acute fracture. Soft tissues: Unremarkable. Lymph nodes: Unremarkable. Intraperitoneal space: Free air in the upper abdomen. Correlate for recent intra-abdominal procedure otherwise findings are concerning for viscus perforation. IMPRESSION: 1. No pulmonary embolism. 2. Left lower lobe mucus plugging and consolidation. Small amount of groundglass in the right upper lobe. Correlate for pneumonia. 3. Free air in the upper abdomen. Correlate for recent intra-abdominal procedure otherwise findings are concerning for viscus perforation. Electronically signed by: Mao Lozano MD 02/20/25 21:40 PM
[2025-02-21] MEDS: IBUPROFEN 600 MG TAB PO SCH (03:24)
[2025-02-21] MEDS ORDERED: KETOROLAC 30 MG/ML VIAL IV PRN (04:00)
[2025-02-21 06:12] LABS: Hematocrit (blood only) 34.3 % (37.0-47.0); Hemoglobin 11.7 g/dl (12.0-16.0); Immature Granulocytes # (auto) 0.08 K/uL (0.01-0.20); Immature Granulocytes % (auto) 0.5 %; Mean Corpuscular Hemoglobin 31.5 pg (25.0-34.0); Mean Corpuscular Volume 92.5 fL (80.0-100.0); Platelet Count 159 K/uL (130-400); RDW Standard Deviation 43.0 fL (36.4-46.3); Red Blood Count 3.71 M/uL (4.20-5.40); White Blood Count 14.70 K/ul (4.8-10.8)
--- NOTE | 2025-02-21 07:44 | Obstetrical Progress Note ---
Date of Service <Cele Brown MD - Last Filed: 02/21/25 07:53> February 21, 2025 Assessment & Plan <Cele Brown MD - Last Filed: 02/21/25 07:53> (1) Previous delivery affecting : Plan -Continue stable and routine care. Breast feeding. Rhesus Positive. Rubella Immune. Incision and sutures are properly annealed without signs of infection. Chest congestion complaints in evening, CTA taken with unremarkable findings. -At bedside today, pt stable and without complaint. Continue to monitor. <Rufus Burrell MD, FACOG - Last Filed: 02/22/25 08:34> (1) Previous delivery affecting : Subjective <Cele Brown MD - Last Filed: 02/21/25 07:53> Ambulation: ambulating normally Voiding: no voiding problems Passing Gas:: Yes Diet Tolerance:: clear liquids Lochia:: Small Feeding Type:: breast feeding Current Pain Level(1-10): 0 PPD1. Pt resting comfortably at bedside. Review of Systems All systems reviewed & are unremarkable except as noted in HPI & below i. Denies fever, chills, sweats ii. Denies SOB, difficulty breathing, chest pain, palpitations, chest pressure iii. Denies breast pain. iv. Denies Dysuria v. Denies headache or changes in vision. Physical Exam <Cele Brown MD - Last Filed: 02/21/25 07:53> Constitutional WD/WN, vitals as above Respiratory normal respiratory effort, lungs clear to auscultation Cardiovascular RRR, no murmur, no edema Gastrointestinal (Abdomen) normal bowel sounds, soft, nontender, no hepatosplenomegaly On palpation of abdomen, fundus is at the level of the umbilicus. uterus is firm and has begun involution, at approximatly 1cm/day. Psychiatric A+Ox3, euthymic affect Results & Data <Cele Brown MD - Last Filed: 02/21/25 07:53> Vital Signs (Past 12 Hours) Vital Signs Temp Pulse Pulse Resp BP Pulse Ox O2 Del Method 02/21/25 03:25 36.5 C 82 18 112/69 93 Room Air 02/21/25 00:40 37 C 76 17 103/66 93 Room Air 02/20/25 20:35 75 18 106/62 93 Room Air 02/20/25 19:45 36.8 C 79 18 114/69 93 Room Air Supervising Physician <Rufus Burrell MD, FACOG - Last Filed: 02/22/25 08:34> Co-Signing Physician Notes Resident Physician Supervision Note: I was present with Dr. Urena during the history and exam. I discussed the case with the resident and agree with the findings and plan as documented in the note. Any exceptions or clarifications are listed here: [None] Documented By: Rufus Burrell MD, FACOG Resident Activity Tracking <Cele Brown MD - Last Filed: 02/21/25 07:53> Resident Involvement: Resident Care Provided Care Provided: OB Delivery
[2025-02-21] MEDS ORDERED: ALBUTEROL 0.083% NEBU SOLN 3 ML VIAL NEB PRN (09:13)
--- NOTE | 2025-02-21 09:19 | Obstetrical Progress Note ---
Date of Service February 21, 2025 Assessment & Plan (1) Respiratory distress: (2) Abnormal finding on imaging: (3) Pneumonia: Plan Patient obviously having difficulty breathing. Place on cont o2 monitor and titrate o2 to keep pOx >=92%. Have called hospitalist medicine as pt with abnl CT for pneumonia and they will see her and begin iv abx and nebulizers. Patient aware that they are consulted and coming to aid in her dx and trt. Appreciate their help. Admission and Anticipated Discharge Date Admission Date: February 20, 2025 Subjective ctsp due to respiratory distress, and decrease o2 sat. pt standing in room. she is visibly in distress, breathing with difficulty. she notes since thursday has had some nasal congestion. she notes 2 kids in school. she has some postnasal drip. she feels like she is wanting to bring up something from her lungs but cannot. she feels uncomfortable. Of note, at my signout this am, i was told CTA ordered for possible PE due to pt complaints of chest pain. She is feeling worse now. Review of Systems Constitutional: as per Subjective / HPI Physical Exam Constitutional: WD/WN, vitals as above + ill appearing Respiratory: + respiratory distress, + labored breath ing and + audible wheezes Auscultation: + rhonchi and + wheezes Psychiatric: A+Ox3, euthymic affect Results & Data Vital Signs (Past 12 Hours) Vital Signs Temp Pulse Resp BP Pulse Ox O2 Del Method 02/21/25 08:30 Room Air 02/21/25 08:30 97.9 F 86 24 109/68 89 L Room Air 02/21/25 03:25 97.7 F 82 18 112/69 93 Room Air 02/21/25 00:40 98.6 F 76 17 103/66 93 Room Air PG Care Time/CCT Total # of Minutes Spent Total Time Spent with Patient: Total time spent is greater than 50% in coordination of care (as documented) at patient's floor/unit and/or counseling patient: Coding Level of Care Code None Diagnoses Respiratory distress R06.03 Abnormal finding on imaging R93.89 Pneumonia J18.9
--- NOTE | 2025-02-21 09:33 | Hospitalist Consultation ---
Date of Consultation February 21, 2025 Assessment & Plan (1) Pneumonia: (2) Respiratory distress: (3) S/P : Plan 34 year old female POD#1 s/p , hospitalist consult placed d/t acute shortness of breath and escalating supplemental O2 requirement: #Pneumonia: CTA negative for PE but demonstrated LLL consolidation and small amount of groundglass in RUL, suggestive of pneumonia Start Ceftriaxone and azithromycin Suspect contributory reactive airway component - trial albuterol neb treatment Supplemental O2 as needed to maintain SpO2>93% Continue incentive spirometry VTE ppx: SCDs Supervising Physician Co-Signing Physician Notes I personally examined the patient and verified all welch points of history and exam, discussed case, and agree with decision making with Dr Patiño Feeling better by the time I see her. Still on 4 L. Cough. Vitals noted, in general she is awake alert oriented fatigued but no distress. HEENT normocephalic atraumatic mucous membranes moist. Lungs are clear except for markedly diminished breath sounds base left. No rales rhonchi or wheezes with good effort. Skin without rashes pallor or icterus. Community-acquired pneumonia/hypoxiamore stable on supplemental oxygen. Started Zithromax and Rocephin. Started nebulizers. Continue to follow clinically. Discussed "natural history" of resolution of pneumonia with treatment. History of Present Illness Attending Physician: Jessica iNx MD History of Present Illness 34 year old female POD#1 s/p , hospitalist consult placed d/t acute shortness of breath and escalating supplemental O2 requirement. Patient seen at bedside, states that she developed mild cough and congestion over the weekend. Progressive worsening of dyspnea yesterday with acute worsening this morning. CTA obtained overnight to r/o PE, no PE identified but LLL consolidation and small amount of groundglass in RUL noted. Patient endorses chills overnight, no objective fever noted though patient has been receiving antipyretics at regular intervals. Cough is minimally productive. Denies h/o asthma, COPD, or other respiratory problems. Patient is a smoker. Allergies Allergy/AdvReac Type Severity Reaction Status Date / Time No Known Allergies Allergy Verified 02/20/25 00:22 Home Medications Medication Instructions Recorded Confirmed Type [id number] 1 tab PO DAILY 07/28/24 02/20/25 History [ Plus] acetaminophen 325 mg tablet 325 mg PO QID PRN Pain 02/14/25 02/15/25 History Patient History Medical History (Updated 02/21/25 @ 09:29 by Leatha Mccullough MD, FACOG) MDD (major depressive disorder), recurrent episode hx Anxiety no meds Tobacco abuse History of COVID-19 07/18/2020 (per OB note) [facility] [place]; loss of taste/smell, denies additional symptoms; still without taste/smell Surgical History History of wisdom tooth extraction History of x2 H/O oral surgery H/O dilation and curettage SAB Family History Grandmother Cancer Grandmother (Maternal) Diabetes Hypertension Other No family history of adverse response to anesthesia Denies family history of Ovarian cancer Myocardial infarction Breast cancer Lung cancer Colorectal cancer Stroke Social History Smoking Status: Current every day smoker Tobacco Type: E-cigarettes / Vaping Cigarettes Per Day: 10; Second Hand Exposure: Yes; Do You Dip or Chew Tobacco: No; Hx Alcohol Use: No Hx Substance Use: No Preferred Language: Turkmen Communication Ability: Effective Visual Impairment: Limited Hearing Ability: Normal Librarian Assistant Required: No Beliefs That Will Affect Care: None marital status: Single marital status details: Segundo (32) [phone] Current Living Situation: Significant Other current occupational status: employed 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 [employer] How many Children do You have: 2 Other Information That Helps Us Care for You: No Feels Safe at Home: Yes Safety Concerns: Feels Safe At This Time Childhood Exposure to Second-Hand Smoke: Yes Diet: regular caffeine: Yes Dental Care, Regularly: No Physical Activity Frequency: 3-4 Times per Week Seatbelt Use: always Sunscreen Use: No Assistive Devices: Contacts and Glasses Review of Systems Review of Systems: as per HPI Physical Exam Physical Exam: Constitutional: mild respiratory distress HEENT: NCAT, no conjunctival injection CV: extremities well-perfused, no LE edema Resp: +increased work of breathing, +diffuse expiratory wheezes on auscultation, +reduced air movement GI: nondistended MSK: no gross deformities Skin: warm, dry, no rash appreciated Neuro: alert, oriented, no focal neurologic deficit appreciated Results & Data Results & Data Vital Signs (Past 12 Hours) Vital Signs Temp Pulse Resp BP Pulse Ox O2 Del Method 02/21/25 08:30 Room Air 02/21/25 08:30 36.6 C 86 24 109/68 89 L Room Air 02/21/25 03:25 36.5 C 82 18 112/69 93 Room Air 02/21/25 00:40 37 C 76 17 103/66 93 Room Air Resident Activity Tracking Resident Involvement: Resident Care Provided Care Provided: Adult Hospital Medicine
--- NOTE | 2025-02-21 09:55 | Electrocardiogram Report ---
Test Reason : Blood Pressure : */* mmHG Vent. Rate : 90 BPM Atrial Rate : 90 BPM P-R Int : 174 ms QRS Dur : 86 ms QT Int : 350 ms P-R-T Axes : 78 92 59 degrees QTcB Int : 428 ms Normal sinus rhythm Rightward axis Borderline ECG No previous ECGs available Confirmed by Neil Caicedo ([id number]) on 02/21/2025 9:55:47 AM Referred By: REFERRED SELF Confirmed By: Neil Caicedo
[2025-02-21] MEDS: cefTRIAXone SODIUM 1,000 MG/50 ML BAG IV SCH (10:18)
[2025-02-21] MEDS: ALBUTEROL 0.083% NEBU SOLN 3 ML VIAL NEB STA (10:22)
[2025-02-21] MEDS: AZITHROMYCIN 500 MG/255 ML BAG IV SCH (11:10)
--- NOTE | 2025-02-21 14:03 | Billing Data ---
Date of Service February 21, 2025 Coding Level of Care Code 72786 INT INP/OBS CARE
[2025-02-21] MEDS: NICOTINE 14 MG/24 HR PATCH TD SCH (22:10)
[2025-02-22 01:25] VITALS: TEMP 97.9
[2025-02-22] MEDS: IBUPROFEN 600 MG TAB PO PRN (04:12)
[2025-02-22 06:21] LABS: Hematocrit (blood only) 34.0 % (37.0-47.0); Hemoglobin 11.5 g/dl (12.0-16.0)
--- NOTE | 2025-02-22 08:05 | Hospitalist Progress Note ---
Date of Service February 22, 2025 Assessment & Plan (1) Pneumonia: (2) Respiratory distress: (3) S/P : Plan 34 year old female POD#2 s/p , hospitalist consult placed d/t acute shortness of breath and escalating supplemental O2 requirement: #Pneumonia: CTA negative for PE but demonstrated LLL consolidation and small amount of groundglass in RUL, suggestive of pneumonia Stable on room air, appropriate for discharge from hospitalist perspective - will discharge on PO cefpodoxime x5 more days, azithromycin x1 more day Suspect contributory reactive airway component - continue albuterol inhaler Q6h PRN Recommend outpatient primary care follow up next week Admission and Anticipated Discharge Date Admission Date: February 20, 2025 Supervising Physician Co-Signing Physician Notes I personally examined the patient and verified all welch points of history and exam, discussed case, and agree with decision making with Dr Patiño Tried to see patient as she was in the bathroom. Discussed with Dr. Britton was doing much better. Vitals and labs were reviewed also reassuring. Discussed with her . Community-acquired pneumoniasafe/stable for homeantibiotics as above. Otherwise as above. Subjective Patient evaluated at bedside, has been stable on room air since yesterday afternoon. Still endorses intermittent shortness of breath, primarily with activity. Thinks the neb treatment yesterday was helpful. Denies fevers/chills. Review of Systems Review of Systems: as per HPI Physical Exam Physical Exam: Constitutional: mild respiratory distress HEENT: NCAT, no conjunctival injection CV: extremities well-perfused, no LE edema Resp: +mild expiratory wheezes bilaterally on auscultation, +mildly reduced air movement GI: nondistended MSK: no gross deformities Skin: warm, dry, no rash appreciated Neuro: alert, oriented, no focal neurologic deficit appreciated Results & Data Results & Data Vital Signs (Past 12 Hours) Vital Signs Temp Pulse Pulse Resp BP Pulse Ox O2 Del Method 02/22/25 00:00 67 17 94 Room Air 02/22/25 00:00 36.6 C 67 17 96/62 L 94 Room Air 02/21/25 21:30 96 Room Air O2 Flow Rate 02/22/25 00:00 02/22/25 00:00 02/21/25 21:30 2 Resident Activity Tracking Resident Involvement: Resident Care Provided Care Provided: Adult [facility]
--- NOTE | 2025-02-22 08:18 | Obstetrical Progress Note ---
Date of Service February 22, 2025 Assessment & Plan (1) care and examination: routine pp care. po pain meds. breast, rh pos, will need mmr booster (2) Pneumonia: appreciate hospitalist care. pt does not have pcp and so will need outpt followup i suspect and so that will need to be addressed. still with alot of wheezing today as well, await their recs for mgmt. Subjective Ambulation: ambulating normally Voiding: no voiding problems Passing Gas:: Yes Diet Tolerance:: regular diet Lochia:: Small Feeding Type:: breast feeding doing much better this am. minimal wheezing per her. pain control adequate. Constitutional: + as per Subjective / HPI Physical Exam Constitutional WD/WN, vitals as above Respiratory normal respiratory effort; no respiratory distress Auscultation: + diminished lung sounds (bilateral bases. R>L) and + wheezes (throughout) Cardiovascular Rate/Rhythm: regular rate and regular rhythm Gastrointestinal (Abdomen) Inspection/Auscultation: abdomen normal to inspection and + abdominal surgical incision (c/d/i) Percussion/Palpation: abdomen soft Fundus firm 2cm down Musculoskeletal nt calves no edema Neurologic grossly normal Psychiatric A+Ox3, euthymic affect Results & Data Vital Signs (Past 12 Hours) Vital Signs Temp Pulse Pulse Resp BP Pulse Ox O2 Del Method 02/22/25 00:00 67 17 94 Room Air 02/22/25 00:00 97.9 F 67 17 96/62 L 94 Room Air 02/21/25 21:30 96 Room Air O2 Flow Rate 02/22/25 00:00 02/22/25 00:00 02/21/25 21:30 2
[2025-02-22 10:33] VITALS: BP 128/79; RESP 16; O2SAT 99
[2025-02-22] MEDS: ACETAMINOPHEN 325 MG TAB PO PRN (10:38)
[2025-02-22] MEDS: AZITHROMYCIN 250 MG TAB PO ONE (10:39)
[2025-02-22 11:05] VITALS: PULSE 73
[2025-02-22] MEDS: REMOVE NICODERM PATCH SCH (11:51)
--- NOTE | 2025-02-22 18:58 | Billing Data ---
Date of Service February 22, 2025 Coding Level of Care Code 62448 SUB INP/OBS CARE
--- NOTE | 2025-02-23 15:15 | Discharge Summary ---
Date of Service February 23, 2025 Admission HPI Per Admitting Provider 34 yo at 39 wga presents with SROM. 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 Date GA wks Lbr Lgth wt Sex Type del Anes Place Del Prov ? Comment Unknown 8 Aborted-Spontaneous 201504/23/18 39 6lb 11oz M Epidural [facility] Dr. Acosta No failure to progress 11/02/20 39 6lbs F Spi nal [facility] Dr. Acosta No denies hx stis denies hx abnl pap Discharge Data Consultations 02/20/25 00:21 Consult Anesthesiology Stat 02/21/25 14:01 Consult Hospitalist Stat Procedures Performed Operation Date: 02/20/25 01:00 Actual Procedures p Section in LD - Jessica Nix MD Hospital Course (1) Previous delivery affecting : (2) SROM (spontaneous rupture of membranes): (3) Pneumonia: Plan 34 yo at 39 wga presented with SROM with plan to undergo repeat CS and tubal ligation. See operative report for details. Post-op course was complicated by dx of pneumonia for which hospitalist consultation was obtained for treatment and management. Following initiation of treatment, she was discharged home on POD2 Coding Level of Care Code None Diagnoses Previous delivery affecting O34.219 SROM (spontaneous rupture of membranes) Pneumonia J18.9
== END 2025-02-22 11:52 | disposition home or self-care (01) | DRG 783 ==
LOC: OPB 23:57 → 4S1 23:59 → 4E2 02-20 06:31
DX: R06.03 Acute respiratory distress; O99.334 Smoking (tobacco) complicating childbirth; J18.9 Pneumonia, unspecified organism; F17.290 Nicotine dependence, other tobacco product, uncomplicated; Z30.2 Encounter for sterilization; Z3A.39 39 weeks gestation of pregnancy; O99.53 Diseases of the respiratory system complicating the puerperium; Z37.0 Single live birth; O34.211 Maternal care for low transverse scar from previous cesarean delivery